=== PATIENT | female | born 1945 | race Caucasian/White ===

== ENCOUNTER 2017-08-27 04:37 | Inpatient (IN) ==
[2017-08-27] MEDS ORDERED: Naloxone 0.4 MG/ML INJ IVP PRN ×2 (08:19→20:30)
[2017-08-27] MEDS ORDERED: Dextrose Gel 15 GM/37.5 ML TUBE PO PRN ×4 (08:24→20:30)
[2017-08-27] MEDS ORDERED: D5% in Water 1,000 ML IVC PRN ×2 (08:24→20:30)
[2017-08-27] MEDS ORDERED: *HR* Dextrose 50 % in Water (Syg) 50 ML SYRINGE IVP PRN ×2 (08:24→20:30)
[2017-08-27] MEDS ORDERED: 0.9 % Sodium Chloride 1,000 ML IVC SCH (08:30)
[2017-08-27] MEDS ORDERED: Acetaminophen 325 MG TABLET PO PRN ×2 (08:31→20:30)
--- NOTE | 2017-08-27 08:31 | Internal Med History&Physical ---
Date of Encounter: 08/27/17 Time of Encounter: 08:29 Assessment and Plan (1) Obstruction of left ureteropelvic junction (UPJ) due to stone Current visit: Yes Status: Acute Pain control IVF Follow UA and culture eval, called and consulted (2) HTN (hypertension) Current visit: Yes Status: Chronic Continue home meds, monitor closely Qualifiers: Hypertension type: essential hypertension Qualified Code(s): I10 - Essential (primary) hypertension (3) Depression Current visit: Yes Status: Chronic continue home meds Qualifiers: Depression Type: unspecified Qualified Code(s): F32.9 - Major depressive disorder, single episode, unspecified (4) Diabetes mellitus Current visit: Yes Status: Chronic on glimepiride , metformin and insuoin Check A1C Suspect CKD, no renal function to compare with FS q4h till after surgery Sliding scale insulin q4 Levemir HS ADA diet after surgery Qualifiers: Diabetes mellitus type: type 2 Diabetes mellitus complication status: with unspecified complications Diabetes mellitus retirement insulin use: with retirement use Qualified Code(s): E11.8 - Type 2 diabetes mellitus with unspecified complications; Z79.4 - skilled nursing (current) use of insulin; Z79.4 - terminal superintendent ( current) use of insulin; Z79.4 - skilled nursing (current) use of insulin; Z79.4 - skilled nursing (current) use of insulin (5) Atrial fibrillation Current visit: Yes Status: Chronic HR controlled, metoprolol, hold xarelto till after surgery Qualifiers: Atrial fibrillation type: chronic Qualified Code(s): I48.2 - Chronic atrial fibrillation (6) HLD (hyperlipidemia) Current visit: Yes Status: Chronic continue home meds Qualifiers: Hyperlipidemia type: unspecified Qualified Code(s): E78.5 - Hyperlipidemia , unspecified (7) History of colon cancer Current visit: Yes Status: Chronic in remission per patient (8) Ureteral colic Current visit: Yes Status: Acute pain control, IVF, urology eval (9) Renal insufficiency Current visit: Yes Status: Acute unspecified if acute or chronic We will give IVF and monitor Chem Internal Medicine - H&P: HPI Chief complaint: Loin pain Admitted From: Hospital to Hospital Transfer Plans for Post Hospital Care: Home History of present illness: Ms. Lewis is a 72 year old female with PMH of DM, Afib, CAD, HTN, personal hx of colon CA (in remission) She is seen at the bedside in company of her daughter The patient presented to an outside facility for left loin pain, started as sudden, severe 10/10, radiating down the LLQ and into the abdomen, associated with nausea, no vomiting. She denies diarrhea, bloody bowel movement. No preceding trauma, no known aggravating or relieving factors. She has a hx of renal stones. At the outside facility, she received IV dilaudid -total of 2.5mg and zofran, work up revealed WBC 10.9, Hb 12.6, K and Na WNL, Cr 1.81. EKG was NSR, Plain abdominal Xray unremarkable, but abdomen CT scan showed 7mm left UPJ stone causing moderate Lt obstructive yropathy, Lt perinephric stranding with possible secondary fornicela tear She was transferred to [facility] for urologic intervention and is admitted to medicine services due to her multiple medical problems She does not have a hx of [place], she does not remeber when her last ECHO ws. She has no angina, on minimal exertion, she is minimally active at home, but denies orthopnea, leg swelling, dyspnea, or PND. She had hernia repair under [place] about 2-3 years ago without any side effects. She has never smoked. She has no neurologic symptoms She will be admitted to medicine for management and work up Dr. Duque of urology has been contacted She has no advanced directives, she is full code Past Med Surg Social Fam HX - Past Medical History Medical history: atrial fibrillation, cancer, diabetes, hypertension, kidney stones Psychiatric history: depression - Social History Smoking Status: Never smoker Alcohol use: none Drug use: none Occupational status: unemployed Current living situation: Home - Independent All Systems PM: A 10-system review of systems was performed and is negative for pertinent findings except as documented above in the HPI. - Constitutional Constitutional: as per HPI - EENT Eyes: as per HPI Ears: as per HPI Nose, mouth and throat: as per HPI - Cardiovascular Cardiovascular ROS IM: as per HPI - Respiratory Respiratory: as per HPI - Gastrointestinal Gastrointestinal: as per HPI - Genitourinary Genitourinary: as per HPI - Musculoskeletal Musculoskeletal ROS IM: as per HPI - Integumentary Integumentary IM: as per HPI - Neurological Neurological ROS: as per HPI - Hematologic/Lymphatic Hematologic/Lymphatic: as per HPI - Constitutional Vitals: Temp Pulse Resp BP Pulse Ox 98.0 F 85 15 119/69 92 08/27/17 07:52 08/27/17 07:52 08/27/17 07:52 08/27/17 07:52 08/27/17 07:52 General appearance: Present: A&O X 3, no acute distress, obese - Head Head exam: Present: atraumatic, normocephalic - Eye Eye exam: Present: PERRL, conjuntiva pink, sclera anicteric Pupils: Present: PERRL - Neck Neck exam general surgery: Present: supple, trachea midline. Absent: lymphadenopathy - Respiratory Respiratory exam: Present: CTAB. Absent: accessory muscle use, rales, rhonchi, wheezes - Cardiovascular Cardiovascular exam: Present: RRR, +S1, +S2. Absent: diastolic murmur, gallop, rubs, systolic murmur - GI/Abdominal GI/Abdominal exam: Present: normal bowel sounds, soft, no peritoneal signs. Absent: distended, tenderness Additional comments: scar+ - Extremities Exam Extremities exam: Present: warm, radial pulses palpable and symmetrical. Absent : calf tenderness, cyanotic, pedal edema - Back Exam Back exam: Present: CVA tenderness (L) - Neurological Exam Neurological exam: Present: alert, CN II-XII intact, oriented X3, no focal deficits. Absent: pronater drift, facial droop, speech deficit - Skin Skin exam: Present: dry, intact
[2017-08-27] MEDS ORDERED: Ondansetron 4 MG/2 ML VIAL IVP PRN ×2 (08:37→20:30)
[2017-08-27 09:00] LABS: Eosinophils % 0.2 %; Hematocrit 38.6 % (35.3-44.9); Hemoglobin 11.8 g/dL (11.5-15.4); Immature Granulocytes % 0.5 % (0-4); Lymphocytes % 9.7 %; Mean Corpuscular HGB Conc 30.6 g/dL (31.6-35.5); Mean Corpuscular Hemoglobin 25.2 pg (28.0-33.3); Mean Corpuscular Volume 82.5 fL (83.0-100.0); Mean Platelet Volume 9.4 fL (9.4-12.4); Monocytes % 7.9 %; Platelet Count 246 K/mcL (140-400); Red Blood Count 4.68 M/mcL (3.82-4.97); Red Cell Distribution Width 15.1 % (11.5-14.5); Segmented Neutrophils % 81.4 %
[2017-08-27] MEDS ORDERED: FLUoxetine HCl Oral Soln 20 MG/5 ML UDC PO SCH (09:00)
[2017-08-27 09:01] LABS: Basophils % 0.3 %; Lymphocytes # 1.3 K/mcL (0.6-4.6); Monocytes # 1.1 K/mcL (0.0-1.3); Neutrophils # 10.8 K/mcL (1.6-8.9)
[2017-08-27] MEDS: *HR* OxyCODONE Immed Rel 5 MG TABLET PO PRN ×2 (09:09→15:51)
[2017-08-27 09:10] LABS: INR 1.5; Prothrombin Time 16.7 Seconds (9.4-12.1)
[2017-08-27 09:18] LABS: Calcium 8.8 mg/dL (8.6-10.3); Potassium 4.9 mEq/L (3.5-5.1)
[2017-08-27 09:48] LABS: Hemoglobin A1C 7.1 %
[2017-08-27] MEDS: *HR* HYDROmorphone (PF) 1 MG/ML SYRINGE IVP PRN ×2 (11:32→17:41)
--- NOTE | 2017-08-27 11:39 | Urology - Consult Note ---
Date of Encounter: 08/27/17 Time of Encounter: 11:37 - Assessment and Plan (1) Ureteral colic Current Visit: Yes Status: Acute Assessment and plan: 72-year-old woman with a left proximal ureteral stone. I recommend proceeding with a cystoscopy and left ureteral stent placement. She was informed of the risks of the procedure including but not limited to bleeding, infection, injury to other structures, need for further procedures, stent irritation, ureteral perforation, need for nephrostomy tube, need for open repair, risks unforeseen, and the risk of anesthesia. She is willing to proceed. Urology CN:HPI Consult date: 08/27/17 Reason for consult Urology: Other (Left flank pain) Requesting physician: Jose Peters History of present illness: 72-year-old woman presents with a history of left flank pain. She has a known stone history. She was seen at an outside emergency room. The pain radiated to her left groin. It was sharp. It has been intermittent. The pain can be severe. A CT scan was performed which showed a 7 mm left proximal ureteral stone. She was transferred here for further care. She previously had a stone treated many years ago. Past Med Surg Social Fam HX - Past Medical History Medical history: atrial fibrillation, cancer, diabetes, hypertension, kidney stones Psychiatric history: depression - Social History Smoking Status: Never smoker Alcohol use: none Drug use: none Medications and Allergies Cyanocobalamin (B-12) [Vitamin B12] 1,000 mcg IM QMONTH 08/27/17 [History] FLUoxetine HCl [PROzac] 20 mg PO DAILY 08/27/17 [History] HYDROcodone/Acet 5/325 mg [[place] 5-325 mg] 1 tab PO TID 08/27/17 [History] Insulin Glargine,Hum.rec.anlog [Lantus Solostar] 20 unit SQ HS 08/27/17 [History ] Rivaroxaban [Xarelto] 20 mg PO DAILY 08/27/17 [History] glipiZIDE [Glucotrol] 5 mg PO TID 08/27/17 [History] metFORMIN [Glucophage] 500 mg PO TID 08/27/17 [History] 3 Allergy/AdvReac Type Severity Reaction Status Date / Time aspirin Allergy Nausea Verified 08/27/17 11:26 Review of Systems - Constitutional no chills, no fever(s) - EENT Nose, mouth and throat: no dizziness - Cardiovascular no chest pain - Respiratory no dyspnea - Gastrointestinal no nausea, no vomiting - Genitourinary Genitourinary: flank pain, no hematuria - Musculoskeletal no back pain - Integumentary no erythema, no rash - Neurological no weakness - Psychiatric no suicidal ideation - Hematologic/Lymphatic no easy bleeding - Allergic/Immunologic no wheezing Exam Initial Vital Signs Temp Pulse Resp BP Pulse Ox 97.8 F 87 16 131/74 95 08/27/17 06:45 08/27/17 06:45 08/27/17 06:45 08/27/17 06:45 08/27/17 06:45 - General physical appearance Present: well developed, well nourished, no distress - Eyes Absent: icteric - ENT Present: normal nares - Neck Present: trachea midline - Respiratory Present: normal respiratory effort - Cardiovascular Cardiovascular exam IM: RRR - Abdomen Abdomen: Present: soft Urology Results - Labs 08/27/17 08:51 08/27/17 08:51 Abnormal lab results WBC 13.2 K/mcL (4.3-11.1) H 08/27/17 08:51 MCV 82.5 fL (83.0-100.0) L 08/27/17 08:51 MCH 25.2 pg (28.0-33.3) L 08/27/17 08:51 MCHC 30.6 g/dL (31.6-35.5) L 08/27/17 08:51 RDW 15.1 % (11.5-14.5) H 08/27/17 08:51 Neutrophils # 10.8 K/mcL (1.6-8.9) H 08/27/17 08:51 PT 16.7 Seconds (9.4-12.1) H 08/27/17 08:51 BUN 28 mg/dL (8-23) H 08/27/17 08:51 Creatinine 1.62 mg/dL (0.60-1.20) H 08/27/17 08:51 Est GFR ( Amer) 38 (> 60) L 08/27/17 08:51 Est GFR (Non-Af Amer) 31 (> 60) L 08/27/17 08:51 Glucose 248 mg/dL (70-105) H 08/27/17 08:51 Hemoglobin A1c 7.1 % (-5.6) H 08/27/17 08:51 Diabetes panel 08/27/17 08/27/17 Range/Units 08:51 08:51 Sodium 137 (136-145) mEq/L Potassium 4.9 (3.5-5.1) mEq/L Chloride 106 (98-107) mEq/L Carbon Dioxide 27 (23-29) mEq/L BUN 28 H (8-23) mg/dL Creatinine 1.62 H (0.60-1.20) mg/dL Glucose 248 H (70-105) mg/dL Hemoglobin A1c 7.1 H ( - 5.6) % Calcium 8.8 (8.6-10.3) mg/dL Calcium panel 08/27/17 Range/Units 08:51 Calcium 8.8 (8.6-10.3) mg/dL Pituitary panel 08/27/17 Range/Units 08:51 Sodium 137 (136-145) mEq/L Potassium 4.9 (3.5-5.1) mEq/L Chloride 106 (98-107) mEq/L Carbon Dioxide 27 (23-29) mEq/L BUN 28 H (8-23) mg/dL Creatinine 1.62 H (0.60-1.20) mg/dL Glucose 248 H (70-105) mg/dL Calcium 8.8 (8.6-10.3) mg/dL Adrenal panel 08/27/17 Range/Units 08:51 Sodium 137 (136-145) mEq/L Potassium 4.9 (3.5-5.1) mEq/L Chloride 106 (98-107) mEq/L Carbon Dioxide 27 (23-29) mEq/L BUN 28 H (8-23) mg/dL Creatinine 1.62 H (0.60-1.20) mg/dL Glucose 248 H (70-105) mg/dL Calcium 8.8 (8.6-10.3) mg/dL All other labs normal. - Imaging CT scan - abdomen: report reviewed CT scan - pelvis: report reviewed Consult Discharge Plan - Plan Referrals: Tia Dejesus [Primary Care Provider] -
[2017-08-27] MEDS: Insulin LISPRO 300 UNITS/3 ML VIAL SQ SCH ×3 (12:24→23:03)
[2017-08-27 15:10] LABS: Bilirubin,Urine Negative (Negative); Blood,Urine Small (Negative); Clarity,Urine Cloudy (Clear); Color,Urine Yellow (Yellow); Glucose,Urine (UA) Normal (Normal); Ketones,Urine Negative (Negative); Leukocyte Esterase,Urine Small (Negative); Nitrite,Urine Positive (Negative); PH,Urine 5.5 pH Units (5.0-8.0); Protein,Urine Trace mg/dL (Neg-Trace); Specific Gravity,Urine 1.023 (1.010-1.025); Urobilinogen,Urine Normal (Normal)
[2017-08-27 15:12] LABS: Bacteria,Urine Many per hpf (None-Few); Hyaline Casts,Urine None Seen per lpf (None-Few); RBC,Urine 0-3 per hpf (0-3); Squamous Epithelial Cell,Urine Many per lpf (None-Few); WBC,Urine 15-30 per hpf (0-3)
[2017-08-27] MEDS ORDERED: cefTRIAXone 1,000 MG in Water for inj. (sterile) 10 ML IVP SCH (16:00)
--- NOTE | 2017-08-27 18:32 | Anesthesia Evaluation PreOp ---
Date of Encounter: 08/27/17 Time of Encounter: 18:30 - Past History Planned Operation: Cystoscopy, Stent Placement Cardiac History: HTN, Hyperlipidemia, Arrhythmia (A-Fib) Pulmonary History: Denies Any Significant HX ASSOCIATE BROKER History: Denies Any Significant HX Other Medical History: Renal (renal insufficiency), Diabetes Type II, GERD, Other (H/O colon CA, depression) Anesthesia History: No Prior Anesthetic Complications, Past Anesthesia Alcohol Use: none Drug use: none Medications and Allergies Cyanocobalamin (B-12) [Vitamin B12] 1,000 mcg IM QMONTH 08/27/17 [History] FLUoxetine HCl [PROzac] 20 mg PO DAILY 08/27/17 [History] Gabapentin [Neurontin] 600 mg PO TID 08/27/17 [History] HYDROcodone/Acet 5/325 mg [[place] 5-325 mg] 1 tab PO TID PRN 08/27/17 [History] Insulin Glargine,Hum.rec.anlog [Lantus Solostar] 20 unit SQ HS 08/27/17 [History ] Oxybutynin [Ditropan] 5 mg PO BID 08/27/17 [History] Ranitidine HCl [Acid Therapy Director] 150 mg PO BID PRN 08/27/17 [History] Rivaroxaban [Xarelto] 20 mg PO DAILY 08/27/17 [History] Simvastatin [Zocor] 40 mg PO HS 08/27/17 [History] glipiZIDE [Glucotrol] 5 mg PO TID 08/27/17 [History] metFORMIN [Glucophage] 500 mg PO TID 08/27/17 [History] 3 Allergy/AdvReac Type Severity Reaction Status Date / Time aspirin Allergy Nausea Verified 08/27/17 11:26 - Meds/Allergy Pre-op Review Medications Reviewed: Yes Allergies Reviewed: Yes Beta Blockers on Current Med List: Yes If Beta Blockers taken, Date/Time (Last Dose taken): 08/27/2017 at 0909 Anesthesia Results - Labs 08/27/17 08:51 08/27/17 08:51 - Imaging EKG: report reviewed (08/27/2017 A-Fib, low QRS voltage in precordial leads) Anesthesia Exam O2 Sat Height 1.68 m Weight 99.6 kg O2 Sat by Pulse Oximetry 96 O2 Sat by Pulse Oximetry 95 O2 Sat by Pulse Oximetry 92 O2 Sat by Pulse Oximetry 92 O2 Sat by Pulse Oximetry 95 Vital Signs Temp Pulse Resp BP Pulse Ox 97.8 F 87 16 131/74 95 08/27/17 06:45 08/27/17 06:45 08/27/17 06:45 08/27/17 06:45 08/27/17 06:45 Blood Glucose* 114 Height: 5'6''/1.68 m Weight: 219 lbs/99.6 kg NPO (# of Hours): 8 Pain Scale: 7 Pain Scale Used: Numeric (1 - 10) - HEENT Pupil (Motor): EOMI Mallampati: II Teeth: Edentulous Oral Opening: Greater than 3 - ASSOCIATE BROKER LOC: Oriented ASSOCIATE BROKER Motor: Normal RUE, Normal LUE, Normal RLE, Normal LLE, Normal Face ASSOCIATE BROKER Sensory: Normal: RUE, LUE, Face, Deficit: RLE, LLE - Cardiac Rhythm: Irregular Murmur: None - Pulmonary Breath Sounds: bilateral Clear Respiratory Effort: Symmetrical Anesthesia Assess/Plan ASA Score: 3 Modified [place] Scale for Level of Consciousness: Cooperative, oriented, and tranquil Anesthetic Plan: General Monitoring Plan: Standard Monitors Recovery Plan: PACU
[2017-08-27] MEDS ORDERED: Lidocaine -MPF 2% 2 ML VIAL ONE (19:05)
[2017-08-27] MEDS ORDERED: *HR* Propofol 200 MG/20 ML VIAL IVP ONE (19:05)
[2017-08-27] MEDS ORDERED: *HR* FentaNYL (PF) 100 MCG/2 ML VIAL ONE (19:05)
[2017-08-27] MEDS ORDERED: *HR* Succinylcholine 200 MG/10 ML VIAL IVP ONE (19:18)
--- NOTE | 2017-08-27 19:44 | Operative Note ---
Date of procedure: 08/27/17 Pre-op diagnosis: Left ureteral stone Post-op diagnosis: same Procedure: Cystoscopy, Left ureteral stent placement Implants: 6 [place] by 24 cm double-J stent. Complications: None Anesthesia: HOWARD Surgeon: Terry Duque Was there an preschool teacher's assistant present: No Estimated blood loss (cc): 0 Specimen: none Condition: stable Disposition: PACU Procedure in Detail: Indications: Arti is a 72-year-old woman who has a history of nephrolithiasis. She had a CT which showed a left proximal ureteral stone. She still has an 8 mm stone in the left proximal ureter. She elected to undergo a cystoscopy and left ureteral stent placement. She was aware of the risks of the procedure including but not limited to bleeding, infection, injury to other structures, need for further procedures, stent irritation, need for nephrostomy tube, need for open repair, risks otherwise unforeseen, and the risk of anesthesia. She is willing to proceed. Procedure in Detail: After informed consent was obtained the patient was brought back to the operating room and placed in supine position. A time out was performed. General anesthesia was administered and an endotracheal tube was placed. She was then placed in the lithotomy position. She was prepped and draped in the usual sterile fashion. Cystoscopy was performed. The anterior urethra was normal. There was no evidence of bladder tumors. The ureteral orifices were in the normal orthotopic position. There was no duplication of the ureteral orifices. The Zip wire was placed in the left ureteral orifice. The wire was passed a stone. Purulent fluid emanate out of the left ureteral orifice. A 6 [place] by 24cm JJ stent was then placed. The dangle strings were removed. The patient was then awakened from general anesthesia and brought to recovery room in good condition. All sponge, needle, and instrument counts were correct.
--- NOTE | 2017-08-27 19:55 | Anesthesia Evaluation Post Op ---
Date of Encounter: 08/27/17 Time of Encounter: 19:54 - Vital Signs Vital Signs: Vital Signs/O2 Sat, Most Current Temp Pulse Resp BP Pulse Ox 97.6 F 77 16 112/57 96 08/27/17 19:40 08/27/17 19:50 08/27/17 19:50 08/27/17 19:50 08/27/17 19:50 - Lungs Lungs: Clear Ascult./Percussion - Airway Airway: Non-obstructed - Cardiovascular Irregular Rate, Baseline Rhythm - Mental Status Mental Status: Alert & Oriented, Answers Appropriately - Pain Pain Scale: 0 Pain Scale used: Numeric (1 - 10) - Nausea Vomiting Nausea Vomiting: Not Present - Hydration Hydration: NPO, Has not voided - Discharge PostOp Status: Transfer Patient to floor
[2017-08-27] MEDS ORDERED: *HR* HYDROmorphone (PF) 1 MG/ML SYRINGE IVP PRN (20:30)
[2017-08-27] MEDS ORDERED: Insulin DETEMIR 100 UNIT/ML X5UNITS SQ SCH (21:00)
[2017-08-27] MEDS: 0.9 % Sodium Chloride 1,000 ML IVC SCH (22:53)
[2017-08-27] MEDS: Insulin DETEMIR 100 UNIT/ML X5UNITS SQ SCH (22:53)
[2017-08-28 05:48] LABS: Basophils % 0.4 %; Eosinophils # 0.2 K/mcL (0.0-0.6); Eosinophils % 1.6 %; Hematocrit 35.9 % (35.3-44.9); Hemoglobin 10.7 g/dL (11.5-15.4); Immature Granulocytes % 0.4 % (0-4); Lymphocytes # 1.7 K/mcL (0.6-4.6); Lymphocytes % 16.4 %; Mean Corpuscular HGB Conc 29.8 g/dL (31.6-35.5); Mean Corpuscular Hemoglobin 25.3 pg (28.0-33.3); Mean Corpuscular Volume 84.9 fL (83.0-100.0); Monocytes # 0.9 K/mcL (0.0-1.3); Neutrophils # 7.5 K/mcL (1.6-8.9); Platelet Count 240 K/mcL (140-400); Red Blood Count 4.23 M/mcL (3.82-4.97); Red Cell Distribution Width 15.3 % (11.5-14.5); Segmented Neutrophils % 72.2 %
[2017-08-28] MEDS: 0.9 % Sodium Chloride 1,000 ML IVC SCH ×2 (06:11→18:12)
[2017-08-28] MEDS: *HR* OxyCODONE Immed Rel 5 MG TABLET PO PRN (06:11)
[2017-08-28 06:12] LABS: Calcium 8.6 mg/dL (8.6-10.3); Potassium 4.8 mEq/L (3.5-5.1)
[2017-08-28] MEDS: Insulin LISPRO 300 UNITS/3 ML VIAL SQ SCH ×5 (06:16→20:58)
[2017-08-28] MEDS: FLUoxetine 20 MG CAPSULE PO SCH (08:59)
--- NOTE | 2017-08-28 09:30 | Urology Progress Note ---
Date of Encounter: 08/28/17 Time of Encounter: 09:29 - Assessment and Plan (1) Ureteral colic Current Visit: Yes Status: Acute Assessment and plan: 72-year-old woman status post left ureteral stent placement. She is doing well. We will arrange for ureteroscopy at a later date. We briefly discussed shockwave lithotripsy but given the potential for decreased success rates and her need for anticoagulation she declined this as an option. Disposition per primary team. Progress Note Narrative: Postop day #1 status post cystoscopy and left ureteral stent placement. She is doing well today. Her pain is well-controlled. Objective Initial Vital Signs Temp Pulse Resp BP Pulse Ox 97.8 F 87 16 131/74 95 08/27/17 06:45 08/27/17 06:45 08/27/17 06:45 08/27/17 06:45 08/27/17 06:45 - General physical appearance Present: well developed, well nourished, no distress - Respiratory Present: normal respiratory effort - Abdomen Present: soft - Labs 08/28/17 05:08 08/28/17 05:08 Diabetes panel 08/27/17 08/28/17 Range/Units 08:51 05:08 Sodium 138 (136-145) mEq/L Potassium 4.8 (3.5-5.1) mEq/L Chloride 106 (98-107) mEq/L Carbon Dioxide 28 (23-29) mEq/L BUN 29 H (8-23) mg/dL Creatinine 1.82 H (0.60-1.20) mg/dL Glucose 249 H (70-105) mg/dL Hemoglobin A1c 7.1 H ( - 5.6) % Calcium 8.6 (8.6-10.3) mg/dL Calcium panel 08/28/17 Range/Units 05:08 Calcium 8.6 (8.6-10.3) mg/dL Pituitary panel 08/28/17 Range/Units 05:08 Sodium 138 (136-145) mEq/L Potassium 4.8 (3.5-5.1) mEq/L Chloride 106 (98-107) mEq/L Carbon Dioxide 28 (23-29) mEq/L BUN 29 H (8-23) mg/dL Creatinine 1.82 H (0.60-1.20) mg/dL Glucose 249 H (70-105) mg/dL Calcium 8.6 (8.6-10.3) mg/dL Adrenal panel 08/28/17 Range/Units 05:08 Sodium 138 (136-145) mEq/L Potassium 4.8 (3.5-5.1) mEq/L Chloride 106 (98-107) mEq/L Carbon Dioxide 28 (23-29) mEq/L BUN 29 H (8-23) mg/dL Creatinine 1.82 H (0.60-1.20) mg/dL Glucose 249 H (70-105) mg/dL Calcium 8.6 (8.6-10.3) mg/dL - VTE Documentation of Mechanical Device: Intermittent pneumatic compression device Consult Discharge Plan - Plan Referrals: Tia Dejesus [Primary Care Provider] -
--- NOTE | 2017-08-28 09:44 | Internal Med Progress Note ---
Date of Encounter: 08/28/17 Time of Encounter: 09:15 - Assessment and plan (1) Obstruction of left ureteropelvic junction (UPJ) due to stone Current Visit: Yes Status: Acute Assessment and plan: Postop day 2 cystoscopy with left UPJ stent placement. Now having significant amount of gross hematuria, likely due to procedure and residual effect of Xarelto which was held 2 nights ago. Anticoagulation remains on hold, will continue to monitor. (2) Atrial fibrillation Current Visit: Yes Status: Chronic Assessment and plan: Xarelto has been on hold. Rate is controlled. Restart Xarelto when bleeding stops. Qualifiers: Atrial fibrillation type: chronic Qualified Code(s): I48.2 - Chronic atrial fibrillation (3) Depression Current Visit: Yes Status: Chronic Qualifiers: Depression Type: unspecified Qualified Code(s): F32.9 - Major depressive disorder, single episode, unspecified (4) Diabetes mellitus Current Visit: Yes Status: Chronic Assessment and plan: Basal bolus insulin, monitor. Adjust as necessary Qualifiers: Diabetes mellitus type: type 2 Diabetes mellitus complication status: with unspecified complications Diabetes mellitus custodial insulin use: with termite exterminator helper use Qualified Code(s): E11.8 - Type 2 diabetes mellitus with unspecified complications; Z79.4 - intermediate manager (current) use of insulin; Z79.4 - intermediate manager ( current) use of insulin; Z79.4 - intermediate manager (current) use of insulin; Z79.4 - [facility] (current) use of insulin (5) HLD (hyperlipidemia) Current Visit: Yes Status: Chronic Qualifiers: Hyperlipidemia type: unspecified Qualified Code(s): E78.5 - Hyperlipidemia , unspecified (6) HTN (hypertension) Current Visit: Yes Status: Chronic Assessment and plan: Early under good control. Monitor. Qualifiers: Hypertension type: essential hypertension Qualified Code(s): I10 - Essential (primary) hypertension - Time Spent With Patient 25 - 35 minutes - Subjective Interval history: Chief complaint: Loin pain Admitted From: Hospital to Hospital Transfer Plans for Post Hospital Care: Home History of present illness: Ms. Lewis is a 72 year old female with PMH of DM, Afib, CAD, HTN, personal hx of colon CA (in remission) She is seen at the bedside in company of her daughter The patient presented to an outside facility for left loin pain, started as sudden, severe 10/, radiating down the LLQ and into the abdomen, associated with nausea, no vomiting. She denies diarrhea, bloody bowel movement. No preceding trauma, no known aggravating or relieving factors. She has a hx of renal stones. At the outside facility, she received IV dilaudid -total of 2.5mg and zofran, work up revealed WBC 10.9, Hb 12.6, K and Na WNL, Cr 1.81. EKG was NSR, Plain abdominal Xray unremarkable, but abdomen CT scan showed 7mm left UPJ stone causing moderate Lt obstructive yropathy, Lt perinephric stranding with possible secondary fornicela tear She was transferred to [facility] for urologic intervention and is admitted to medicine services due to her multiple medical problems She does not have a hx of [place], she does not remeber when her last ECHO ws. She has no angina, on minimal exertion, she is minimally active at home, but denies orthopnea, leg swelling, dyspnea, or PND. She had hernia repair under [place] about 2-3 years ago without any side effects. She has never smoked. She has no neurologic symptoms She will be admitted to medicine for management and work up Dr. Duque of urology has been contacted She has no advanced directives, she is full code 08/28: Patient underwent cystoscopy with left UPJ stent last night. She states she feels well today with no pain. No fevers or chills. No nausea, vomiting, diarrhea. No chest pain, no shortness of breath. She does states she is having gross hematuria. Also of note her creatinine has increased from 1.62- 1.82 this morning. She states she is able to tolerate orals, including liquids. - Constitutional Vitals: Temp Pulse Resp BP Pulse Ox 98.6 F 61 16 121/63 95 08/28/17 06:58 08/28/17 06:58 08/28/17 06:58 08/28/17 06:58 08/28/17 06:58 General appearance: Present: A&O X 3, no acute distress, obese - Head Head exam: Present: atraumatic, normocephalic - Eye Eye exam: Present: conjuntiva pink, sclera anicteric - Neck Neck exam general surgery: Present: supple, trachea midline. Absent: lymphadenopathy - Respiratory Respiratory exam: Present: CTAB. Absent: accessory muscle use, rales, rhonchi, wheezes - Cardiovascular Cardiovascular exam: Present: RRR, +S1, +S2. Absent: diastolic murmur, gallop, rubs, systolic murmur - GI/Abdominal GI/Abdominal exam: Present: normal bowel sounds, soft, no peritoneal signs. Absent: distended, tenderness - Extremities Exam Extremities exam: Present: warm, radial pulses palpable and symmetrical. Absent : calf tenderness, cyanotic, pedal edema - Neurological Exam Neurological exam: Present: CN II-XII intact, oriented X3, no focal deficits. Absent: pronater drift, facial droop, speech deficit - Skin Skin exam: Present: dry, intact Internal Medicine: Result - Labs CBC & Chem 7: 08/28/17 05:08 08/28/17 05:08 Labs: Short CBC 08/28/17 Range/Units 05:08 WBC 10.4 (4.3-11.1) K/mcL Hgb 10.7 L (11.5-15.4) g/dL Hct 35.9 (35.3-44.9) % Plt Count 240 (140-400) K/mcL Neutrophils # 7.5 (1.6-8.9) K/mcL BMP 08/28/17 05:08 Sodium 138 Potassium 4.8 Chloride 106 Carbon Dioxide 28 BUN 29 H Creatinine 1.82 H Glucose 249 H Calcium 8.6 Urine 08/27/17 Range/Units 15:00 Urine Color Yellow (Yellow) Urine Clarity Cloudy A (Clear) Urine pH 5.5 (5.0-8.0) pH Units Ur Specific [place] 1.023 (1.010-1.025) Urine Protein Trace (Neg-Trace) mg/dL Urine Glucose (UA) Normal (Normal) mg/dL - ABG Interpretation ABG results: PT/INR, D-dimer PT 16.7 Seconds (9.4-12.1) H 08/27/17 08:51 - Impressions Impressions KUB X-Ray 08/27/17 09:37 IMPRESSION: 1. 2 mm calculus projects over the left kidney. 2. 9 mm calculus may be within the left ureter or left renal pelvis. D/ / Claude Gao MD / Claude Gao MD Interpreting Provider: Claude Gao MD Fluoroscopy 08/27/17 19:20 IMPRESSION: Intraprocedural fluoroscopic spot images as above. See separate procedure report for more information. D/ / Fabiola Mix Cha, MD / Fabiola Mix Cha, MD Interpreting Provider: Fabiola Mix Cha, MD - VTE Documentation of Mechanical Device: Intermittent pneumatic compression device Consult Discharge Plan - Plan Referrals: Tia Dejesus [Primary Care Provider] -
[2017-08-28] MEDS ORDERED: cefTRIAXone 1,000 MG in Water for inj. (sterile) 10 ML IVP SCH (16:00)
[2017-08-28] MEDS ORDERED: *HR* Rivaroxaban 10 MG TABLET PO SCH ×2 (17:00)
[2017-08-28] MEDS: Insulin DETEMIR 100 UNIT/ML X5UNITS SQ SCH (20:57)
[2017-08-29] MEDS: Insulin LISPRO 300 UNITS/3 ML VIAL SQ SCH ×4 (00:31→12:23)
[2017-08-29] MEDS: 0.9 % Sodium Chloride 1,000 ML IVC SCH (02:31)
[2017-08-29] MEDS: FLUoxetine 20 MG CAPSULE PO SCH (08:41)
[2017-08-29 09:12] LABS: Basophils % 0.4 %; Eosinophils # 0.3 K/mcL (0.0-0.6); Eosinophils % 3.4 %; Hematocrit 37.5 % (35.3-44.9); Hemoglobin 11.1 g/dL (11.5-15.4); Immature Granulocytes % 0.2 % (0-4); Lymphocytes # 2.4 K/mcL (0.6-4.6); Mean Corpuscular HGB Conc 29.6 g/dL (31.6-35.5); Mean Corpuscular Hemoglobin 25.3 pg (28.0-33.3); Mean Corpuscular Volume 85.4 fL (83.0-100.0); Mean Platelet Volume 9.6 fL (9.4-12.4); Monocytes # 0.8 K/mcL (0.0-1.3); Monocytes % 8.2 %; Neutrophils # 6.4 K/mcL (1.6-8.9); Platelet Count 209 K/mcL (140-400); Red Blood Count 4.39 M/mcL (3.82-4.97); Red Cell Distribution Width 15.1 % (11.5-14.5); Segmented Neutrophils % 63.8 %
[2017-08-29 09:22] LABS: Calcium 8.6 mg/dL (8.6-10.3); Potassium 4.6 mEq/L (3.5-5.1)
--- NOTE | 2017-08-29 10:34 | Urology Progress Note ---
Date of Encounter: 08/29/17 Time of Encounter: 10:33 - Assessment and Plan (1) Ureteral colic Current Visit: Yes Status: Acute Assessment and plan: 72-year-old woman with a left ureteral stone status post left stent placement. Discharge per primary team. I will arrange for follow-up as an outpatient for left ureteroscopy, laser lithotripsy, and stent exchange. Urology will sign off today. Please call with any questions. Progress Note Narrative: Postop day #2 status post left ureter stent placement. She is doing well. She is voiding well. Objective Initial Vital Signs Temp Pulse Resp BP Pulse Ox 97.8 F 87 16 131/74 95 08/27/17 06:45 08/27/17 06:45 08/27/17 06:45 08/27/17 06:45 08/27/17 06:45 - General physical appearance Present: well developed, well nourished, no distress - Respiratory Present: normal respiratory effort - Abdomen Present: soft - Labs 08/29/17 08:51 08/29/17 08:51 Diabetes panel 08/29/17 Range/Units 08:51 Sodium 137 (136-145) mEq/L Potassium 4.6 (3.5-5.1) mEq/L Chloride 109 H (98-107) mEq/L Carbon Dioxide 22 L (23-29) mEq/L BUN 28 H (8-23) mg/dL Creatinine 1.51 H (0.60-1.20) mg/dL Glucose 129 H (70-105) mg/dL Calcium 8.6 (8.6-10.3) mg/dL Calcium panel 08/29/17 Range/Units 08:51 Calcium 8.6 (8.6-10.3) mg/dL Pituitary panel 08/29/17 Range/Units 08:51 Sodium 137 (136-145) mEq/L Potassium 4.6 (3.5-5.1) mEq/L Chloride 109 H (98-107) mEq/L Carbon Dioxide 22 L (23-29) mEq/L BUN 28 H (8-23) mg/dL Creatinine 1.51 H (0.60-1.20) mg/dL Glucose 129 H (70-105) mg/dL Calcium 8.6 (8.6-10.3) mg/dL Adrenal panel 01/28/18 Range/Units 08:51 Sodium 137 (136-145) mEq/L Potassium 4.6 (3.5-5.1) mEq/L Chloride 109 H (98-107) mEq/L Carbon Dioxide 22 L (23-29) mEq/L BUN 28 H (8-23) mg/dL Creatinine 1.51 H (0.60-1.20) mg/dL Glucose 129 H (70-105) mg/dL Calcium 8.6 (8.6-10.3) mg/dL - VTE Documentation of Mechanical Device: Intermittent pneumatic compression device Consult Discharge Plan - Plan Referrals: Tia Dejesus [Primary Care Provider] -
[2017-08-29] MEDS: *HR* OxyCODONE Immed Rel 5 MG TABLET PO PRN (10:47)
--- NOTE | 2017-08-29 10:50 | Discharge Summary ---
Date of Encounter: 08/29/17 Time of Encounter: 08:30 - Discharge Diagnosis (1) Obstruction of left ureteropelvic junction (UPJ) due to stone Priority: Primary Status: Acute (2) Atrial fibrillation Priority: Secondary Status: Chronic Qualifiers: Atrial fibrillation type: chronic Qualified Code(s): I48.2 - Chronic atrial fibrillation (3) Depression Priority: Secondary Status: Chronic Qualifiers: Depression Type: unspecified Qualified Code(s): F32.9 - Major depressive disorder, single episode, unspecified (4) Diabetes mellitus Priority: Secondary Status: Chronic Qualifiers: Diabetes mellitus type: type 2 Diabetes mellitus complication status: with unspecified complications Diabetes mellitus apparel rental clerk insulin use: with penitentiary use Qualified Code(s): E11.8 - Type 2 diabetes mellitus with unspecified complications; Z79.4 - [facility] (current) use of insulin; Z79.4 - system administrator ( current) use of insulin; Z79.4 - [facility] (current) use of insulin; Z79.4 - system administrator (current) use of insulin (5) HLD (hyperlipidemia) Priority: Secondary Status: Chronic Qualifiers: Hyperlipidemia type: unspecified Qualified Code(s): E78.5 - Hyperlipidemia , unspecified (6) HTN (hypertension) Priority: Secondary Status: Chronic Qualifiers: Hypertension type: essential hypertension Qualified Code(s): I10 - Essential (primary) hypertension - Discharge Medications Home Medications: Cyanocobalamin (B-12) [Vitamin B12] 1,000 mcg IM QMONTH 08/27/17 [History] FLUoxetine HCl [Prozac] 20 mg PO DAILY 08/27/17 [History] Gabapentin [Neurontin] 600 mg PO TID 08/27/17 [History] HYDROcodone/Acet 5/325 mg [[place] 5-325 mg] 1 tab PO TID PRN 08/27/17 [History] Insulin Glargine,Hum.rec.anlog [Lantus Solostar] 20 unit SQ HS 08/27/17 [History ] Oxybutynin [Ditropan] 5 mg PO BID 08/27/17 [History] Ranitidine HCl [Acid Renewals Specialist] 150 mg PO BID PRN 08/27/17 [History] Rivaroxaban [Xarelto] 20 mg PO DAILY 08/27/17 [History] Simvastatin [Zocor] 40 mg PO HS 08/27/17 [History] glipiZIDE [Glucotrol] 5 mg PO TID 08/27/17 [History] Metoprolol [Lopressor] 25 mg PO BID tablet 08/29/17 [Rx] Allergies/Adverse Reactions: 3 Allergy/AdvReac Type Severity Reaction Status Date / Time aspirin Allergy Nausea Verified 08/27/17 11:26 Date of admission: 08/27/17 13:04 Primary care physician: Tia Dejesus Consults: 08/27/17 08:43 Consult to Urology [CONS] Routine Consulting Provider: Urology Luanne Reason for Consult: Obstrutive uropathy, stone Call Completed: Yes 08/29/17 08:24 Consult to Physical Therapy [CONS] Routine Comment: Evaluate, develop and implement POC Reason for Consult: Eval prior to dc please, prob dc later today if doing well Discharging clinician: Oren Galdamez Anticipated date of discharge: 08/29/17 - Patient Status Disposition: Home, Self-Care Condition: Good Functional capacity at discharge: independent ambulation Overall status at discharge: patient is back to baseline - Discharge Instructions Instructions: Kidney Stones (GEN) Follow Up With: Tia Dejesus [Primary Care Provider] - Additional Instructions: Hold metformin until repeat BMP done and okay to resume by her primary care doctor Hold Xarelto until PerSeptember 01, 2017. Continue to hold if any further blood in urine noted. Please see her primary care provider within the next 3-4 days - Diet and Activity Activity: increase activity as tolerated Interval History: Ms. Lewis is a 72 year old female with PMH of DM, Afib, CAD, HTN, personal hx of colon CA (in remission) She is seen at the bedside in company of her daughter The patient presented to an outside facility for left loin pain, started as sudden, severe 10/10, radiating down the LLQ and into the abdomen, associated with nausea, no vomiting. She denies diarrhea, bloody bowel movement. No preceding trauma, no known aggravating or relieving factors. She has a hx of renal stones. At the outside facility, she received IV dilaudid -total of 2.5mg and zofran, work up revealed WBC 10.9, Hb 12.6, K and Na WNL, Cr 1.81. EKG was NSR, Plain abdominal Xray unremarkable, but abdomen CT scan showed 7mm left UPJ stone causing moderate Lt obstructive yropathy, Lt perinephric stranding with possible secondary fornicela tear She was transferred to [facility] for urologic intervention and is admitted to medicine services due to her multiple medical problems She does not have a hx of [place], she does not remeber when her last ECHO ws. She has no angina, on minimal exertion, she is minimally active at home, but denies orthopnea, leg swelling, dyspnea, or PND. She had hernia repair under [place] about 2-3 years ago without any side effects. She has never smoked. She has no neurologic symptoms She will be admitted to medicine for management and work up Dr. Duque of urology has been contacted She has no advanced directives, she is full code 08/28: Patient underwent cystoscopy with left UPJ stent last night. She states she feels well today with no pain. No fevers or chills. No nausea, vomiting, diarrhea. No chest pain, no shortness of breath. She does states she is having gross hematuria. Also of note her creatinine has increased from 1.62- 1.82 this morning. She states she is able to tolerate orals, including liquids. 08/29: Patient did well during her hospital stay. Her hematuria resolved. Her creatinine also improved her level of 1.5 on day of discharge. She was eating well. She was seen by physical therapy prior to discharge. She was instructed to continue to hold metformin until a follow-up BMP became be ordered in 2-3 days and follow up with primary care provider. She also was told to hold the Route toe for at least 2 more days and longer if she notices any further blood in her urine. Patient otherwise was doing well and deemed stable for discharge. Urology evaluated this patient on day of discharge and arrange for outpatient follow-up. Disposition discharge stable. 31 minutes spent on discharge and [place] care. Hospital course: Ms. Lewis is a 72 year old female - Time Spent with Patient Total time spent providing and/or coordinating discharge services: Greater than 30 minutes (31 minutes) - Constitutional Vitals: Temp Pulse Resp BP Pulse Ox 98.4 F 87 16 98/54 96 08/29/17 06:33 08/29/17 06:33 08/29/17 06:33 08/29/17 06:33 08/29/17 06:33 General appearance: Present: A&O X 3, no acute distress, obese - Head Head exam: Present: atraumatic, normocephalic - Eye Eye exam: Present: PERRL, conjuntiva pink, sclera anicteric Pupils: Present: PERRL - Neck Neck exam general surgery: Present: supple, trachea midline. Absent: lymphadenopathy - Respiratory Respiratory exam: Present: CTAB. Absent: accessory muscle use, rales, rhonchi, wheezes - Cardiovascular Cardiovascular exam: Present: RRR, +S1, +S2. Absent: diastolic murmur, gallop, rubs, systolic murmur - GI/Abdominal GI/Abdominal exam: Present: normal bowel sounds, soft, no peritoneal signs. Absent: distended, tenderness - Extremities Exam Extremities exam: Present: warm, radial pulses palpable and symmetrical. Absent : calf tenderness, cyanotic, pedal edema - Neurological Exam Neurological exam: Present: CN II-XII intact, oriented X3, no focal deficits. Absent: pronater drift, facial droop, speech deficit - Skin Skin exam: Present: dry, intact - VTE Documentation of Mechanical Device: Intermittent pneumatic compression device
[2017-08-29 11:35] VITALS: BP 120/69
--- NOTE | 2017-08-31 15:32 | Electrocardiograph Report ---
[address] [place], [place] [address] Test Date: 2017-08-27 Pat Name: Arti Saint Elmo Department: [facility] Room: [facility] Gender: F Acid Strength Inspector: : 1945 Requested By: Julianna March Order Number: [id number] Reading MD: Sonny Foy DO Measurements Intervals [place] Rate: 62 P: IN: 0 QRS: 26 QRSD: 88 T: 44 QT: 406 QTc: 412 Interpretive Statements ATRIAL FIBRILLATION LOW QRS VOLTAGE IN PRECORDIAL LEADS Electronically Signed On 08-31-2017 15:30:26 EST by Sonny Foy DO
== END 2017-08-29 16:00 | disposition home or self-care (01) | DRG 694 ==
LOC: 3NENU
PROVIDERS: ADMIT Internal Medicine Hematology & Oncology; ATTEND Internal Medicine Hematology & Oncology

== ENCOUNTER 2021-07-31 08:59 | Inpatient (IN) ==
[2021-07-31] MEDS ORDERED: Famotidine 20 MG/2 ML VIAL IVP ONE (09:59)
[2021-07-31] MEDS ORDERED: cefOXitin 2,000 MG in Water for inj. (sterile) 10 ML IVP ONE (10:27)
[2021-07-31] MEDS ORDERED: *HR* Rocuronium Bromide 50 MG/5 ML VIAL ONE ×2 (10:29→12:47)
[2021-07-31] MEDS ORDERED: Lidocaine -MPF 2% 5 ML VIAL ONE (10:29)
[2021-07-31] MEDS ORDERED: *HR* FentaNYL (PF) 100 MCG/2 ML VIAL ONE (10:29)
[2021-07-31] MEDS ORDERED: Ondansetron 4 MG/2 ML VIAL ONE (10:29)
[2021-07-31] MEDS ORDERED: Lidocaine HCL 4 ML Topical Solution (Laryng-O-Jet Kit Sterile Pak) TP ONE (10:29)
[2021-07-31] MEDS ORDERED: *HR* Propofol 200 MG/20 ML VIAL IVP ONE (10:29)
[2021-07-31] MEDS ORDERED: Ringers Solution, Lactated 1,000 ML IVC SCH (10:30)
[2021-07-31] MEDS ORDERED: *HR* Vasopressin 20 UNIT/ML VIAL ONE (11:24)
[2021-07-31] MEDS ORDERED: *HR* HYDROMORPHONE 2 MG/ML VIAL ONE (12:18)
[2021-07-31] MEDS ORDERED: *HR* HYDROmorphone PF 0.5 MG/0.5 ML SYRINGE IVP PRN (13:32)
[2021-07-31] MEDS ORDERED: *HR* Metoprolol 5 MG/5 ML VIAL IVP ONE (14:46)
[2021-07-31] MEDS ORDERED: Sugammadex Sodium 200 MG/2 ML VIAL IV ONE ×2 (15:15→15:33)
[2021-07-31] MEDS ORDERED: *HR* Metoprolol 5 MG/5 ML VIAL IVP PRN (17:46)
[2021-07-31] MEDS ORDERED: D5% in Water 1,000 ML IVC PRN (17:46)
[2021-07-31] MEDS ORDERED: Naloxone 0.4 MG/ML INJ IVP PRN (17:46)
[2021-07-31] MEDS ORDERED: Ondansetron 4 MG/2 ML VIAL IVP PRN (17:46)
[2021-07-31] MEDS ORDERED: *HR* Dextrose 50 % in Water (Syg) 50 ML SYRINGE IVP PRN (17:46)
[2021-07-31] MEDS ORDERED: Dextrose Gel 15 GM/37.5 ML TUBE PO PRN ×2 (17:46)
[2021-07-31] MEDS: Insulin LISPRO 300 UNITS/3 ML VIAL SUBQ SCH ×2 (18:28→23:57)
[2021-07-31] MEDS: 0.9 % Sodium Chloride 1,000 ML IVC SCH (18:41)
[2021-07-31] MEDS: Piperacillin/Tazobactam 3.375 GM in 0.9 % Sodium Chloride Mini Bag 100 ML IVPB SCH (18:41)
[2021-07-31] MEDS: *HR* Metoprolol 5 MG/5 ML VIAL IVP SCH ×2 (18:42→23:57)
[2021-07-31] MEDS: Acetaminophen IV 1,000 MG/100 ML BAG IVPB SCH (21:21)
[2021-08-01] MEDS: Acetaminophen IV 1,000 MG/100 ML BAG IVPB SCH ×4 (02:27→16:58)
[2021-08-01 03:12] LABS: Magnesium 1.8 mg/dL (1.6-2.6); Phosphorous 4.4 mg/dL (2.7-4.5); Potassium 4.7 mEq/L (3.5-5.1)
[2021-08-01 03:15] LABS: Basophils % 0.1 %; Hematocrit 36.5 % (35.3-44.9); Hemoglobin 11.2 g/dL (11.5-15.4); Immature Granulocytes % 0.3 % (0-4); Lymphocytes # 0.7 K/mcL (0.6-4.6); Lymphocytes % 4.9 %; Mean Corpuscular HGB Conc 30.7 g/dL (31.6-35.5); Mean Corpuscular Hemoglobin 26.5 pg (28.0-33.3); Mean Corpuscular Volume 86.5 fL (83.0-100.0); Mean Platelet Volume 9.9 fL (9.4-12.4); Monocytes # 1.1 K/mcL (0.0-1.3); Monocytes % 7.5 %; Neutrophils # 12.6 K/mcL (1.6-8.9); Platelet Count 233 K/mcL (140-400); Red Blood Count 4.22 M/mcL (3.82-4.97); Red Cell Distribution Width 14.1 % (11.5-14.5); Segmented Neutrophils % 87.2 %; White Blood Count 14.5 K/mcL (4.3-11.1)
[2021-08-01] MEDS: *HR* Metoprolol 5 MG/5 ML VIAL IVP SCH ×3 (06:24→16:56)
[2021-08-01] MEDS: 0.9 % Sodium Chloride 1,000 ML IVC SCH ×2 (06:25→20:15)
[2021-08-01] MEDS ORDERED: 0.9 % Sodium Chloride 1,000 ML IVC ONE (06:29)
[2021-08-01] MEDS ORDERED: 0.9 % Sodium Chloride Mini Bag 100 ML ONE (08:41)
[2021-08-01] MEDS: Piperacillin/Tazobactam 3.375 GM in 0.9 % Sodium Chloride Mini Bag 100 ML IVPB SCH ×2 (08:50)
[2021-08-01] MEDS: Insulin LISPRO 300 UNITS/3 ML VIAL SUBQ SCH ×2 (12:26→17:46)
[2021-08-01] MEDS: *HR* Heparin 5,000 UNIT/ML VIAL SQ SCH (16:55)
[2021-08-02] MEDS: *HR* Metoprolol 5 MG/5 ML VIAL IVP SCH ×4 (00:11→18:17)
[2021-08-02] MEDS: Insulin LISPRO 300 UNITS/3 ML VIAL SUBQ SCH ×4 (00:11→18:31)
[2021-08-02] MEDS: Acetaminophen IV 1,000 MG/100 ML BAG IVPB SCH ×4 (00:12→18:17)
[2021-08-02 05:16] LABS: Basophils % 0.1 %; Hematocrit 31.4 % (35.3-44.9); Immature Granulocytes % 0.5 % (0-4); Lymphocytes # 1.2 K/mcL (0.6-4.6); Lymphocytes % 8.8 %; Mean Corpuscular HGB Conc 29.6 g/dL (31.6-35.5); Mean Corpuscular Volume 87.7 fL (83.0-100.0); Mean Platelet Volume 10.6 fL (9.4-12.4); Monocytes # 1.1 K/mcL (0.0-1.3); Monocytes % 8.6 %; Neutrophils # 10.8 K/mcL (1.6-8.9); Platelet Count 180 K/mcL (140-400); Red Blood Count 3.58 M/mcL (3.82-4.97); Red Cell Distribution Width 14.5 % (11.5-14.5); White Blood Count 13.1 K/mcL (4.3-11.1)
[2021-08-02 05:21] LABS: Hemoglobin 9.3 g/dL (11.5-15.4)
[2021-08-02 05:30] LABS: Calcium 8.2 mg/dL (8.6-10.3); Phosphorous 2.4 mg/dL (2.7-4.5); Potassium 4.1 mEq/L (3.5-5.1)
[2021-08-02] MEDS: *HR* Heparin 5,000 UNIT/ML VIAL SQ SCH ×2 (06:00→18:17)
[2021-08-02] MEDS: 0.9 % Sodium Chloride 1,000 ML IVC SCH (08:31)
[2021-08-02] MEDS ORDERED: 0.9 % Sodium Chloride 1,000 ML IVC SCH (11:40)
[2021-08-03] MEDS: Acetaminophen IV 1,000 MG/100 ML BAG IVPB SCH ×2 (00:11→06:03)
[2021-08-03] MEDS: *HR* Metoprolol 5 MG/5 ML VIAL IVP SCH ×2 (00:12→06:02)
[2021-08-03] MEDS: Insulin LISPRO 300 UNITS/3 ML VIAL SUBQ SCH ×3 (00:18→17:50)
[2021-08-03] MEDS: *HR* Heparin 5,000 UNIT/ML VIAL SQ SCH ×2 (06:03→17:50)
[2021-08-03 06:31] LABS: Basophils % 0.2 %; Eosinophils # 0.2 K/mcL (0.0-0.6); Eosinophils % 1.4 %; Hematocrit 31.9 % (35.3-44.9); Hemoglobin 9.4 g/dL (11.5-15.4); Immature Granulocytes % 0.4 % (0-4); Lymphocytes # 1.9 K/mcL (0.6-4.6); Lymphocytes % 15.8 %; Mean Corpuscular HGB Conc 29.5 g/dL (31.6-35.5); Mean Corpuscular Volume 88.4 fL (83.0-100.0); Mean Platelet Volume 9.6 fL (9.4-12.4); Monocytes # 0.8 K/mcL (0.0-1.3); Monocytes % 6.6 %; Neutrophils # 9.2 K/mcL (1.6-8.9); Platelet Count 191 K/mcL (140-400); Red Blood Count 3.61 M/mcL (3.82-4.97); Red Cell Distribution Width 14.6 % (11.5-14.5); Segmented Neutrophils % 75.6 %; White Blood Count 12.2 K/mcL (4.3-11.1)
[2021-08-03 06:53] LABS: Calcium 8.2 mg/dL (8.6-10.3); Magnesium 1.9 mg/dL (1.6-2.6); Phosphorous 1.7 mg/dL (2.7-4.5); Potassium 3.9 mEq/L (3.5-5.1)
[2021-08-03] MEDS ORDERED: FLUoxetine 20 MG CAPSULE PO SCH ×2 (11:15→12:00)
[2021-08-03] MEDS ORDERED: Acetaminophen 325 MG TABLET PO PRN (11:39)
[2021-08-03] MEDS ORDERED: *HR* OxyCODONE/APAP 5/325 TABLET PO PRN (11:39)
[2021-08-03] MEDS: FLUoxetine 20 MG CAPSULE PO SCH (20:42)
[2021-08-04] MEDS: *HR* Heparin 5,000 UNIT/ML VIAL SQ SCH (05:21)
[2021-08-04 05:27] LABS: Basophils % 0.3 %; Eosinophils # 0.2 K/mcL (0.0-0.6); Eosinophils % 2.1 %; Hematocrit 31.6 % (35.3-44.9); Immature Granulocytes % 0.9 % (0-4); Lymphocytes # 1.3 K/mcL (0.6-4.6); Lymphocytes % 13.6 %; Mean Corpuscular HGB Conc 31.6 g/dL (31.6-35.5); Mean Corpuscular Hemoglobin 27.3 pg (28.0-33.3); Mean Corpuscular Volume 86.3 fL (83.0-100.0); Mean Platelet Volume 9.9 fL (9.4-12.4); Monocytes # 0.8 K/mcL (0.0-1.3); Platelet Count 229 K/mcL (140-400); Red Blood Count 3.66 M/mcL (3.82-4.97); Red Cell Distribution Width 14.4 % (11.5-14.5); Segmented Neutrophils % 75.1 %; White Blood Count 9.4 K/mcL (4.3-11.1)
[2021-08-04 05:44] LABS: BUN/Creatinine Ratio 13 (6-26); Blood Urea Nitrogen 14 mg/dL (8-23); Calcium 8.2 mg/dL (8.6-10.3); Carbon Dioxide 23 mEq/L (23-29); Chloride 110 mEq/L (98-107); Glucose 196 mg/dL (70-105); Magnesium 1.7 mg/dL (1.6-2.6); Osmolality,Calculated 294 (280-300); Phosphorous 2.4 mg/dL (2.7-4.5); Potassium 3.7 mEq/L (3.5-5.1); Sodium 139 mEq/L (136-145); eGFR For African Americans > 60 (> 60); eGFR For Non-African Americans 50 (> 60)
[2021-08-04] MEDS ORDERED: *HR* Rivaroxaban 10 MG TABLET PO SCH (09:00)
[2021-08-04] MEDS: Furosemide 20 MG TABLET PO SCH ×2 (09:31→21:10)
[2021-08-04] MEDS: Insulin LISPRO 300 UNITS/3 ML VIAL SUBQ SCH ×3 (09:38→17:26)
[2021-08-04] MEDS ORDERED: Insulin DETEMIR 100 UNIT/ML X5UNITS SUBQ SCH (18:00)
[2021-08-04 19:38] VITALS: O2SAT 98
[2021-08-04] MEDS: Psyllium 1 PACKET POWD.PACK PO SCH (21:08)
[2021-08-04] MEDS: FLUoxetine 20 MG CAPSULE PO SCH (21:12)
[2021-08-05 08:08] LABS: BUN/Creatinine Ratio 11 (6-26); Blood Urea Nitrogen 11 mg/dL (8-23); Calcium 8.6 mg/dL (8.6-10.3); Carbon Dioxide 26 mEq/L (23-29); Chloride 109 mEq/L (98-107); Glucose 71 mg/dL (70-105); Magnesium 1.6 mg/dL (1.6-2.6); Osmolality,Calculated 282 (280-300); Phosphorous 2.2 mg/dL (2.7-4.5); Potassium 3.6 mEq/L (3.5-5.1); Sodium 137 mEq/L (136-145); eGFR For African Americans > 60 (> 60); eGFR For Non-African Americans 53 (> 60)
[2021-08-05 08:21] VITALS: BP 143/80; PULSE 58; TEMP 97.4
[2021-08-05] MEDS ORDERED: *HR* Rivaroxaban 15 MG TABLET PO SCH (09:00)
[2021-08-05] MEDS: Psyllium 1 PACKET POWD.PACK PO SCH (09:49)
[2021-08-05] MEDS: Furosemide 20 MG TABLET PO SCH (09:50)
[2021-08-05] MEDS: Insulin LISPRO 300 UNITS/3 ML VIAL SUBQ SCH (09:50)
[2021-08-10] MEDS ORDERED: SEMAGLUTIDE 0.25 MG SQ SCH (15:13)
== END 2021-08-05 13:17 | disposition home health service (06) | DRG 330 ==
LOC: SAMDAY 08:59 → 3ANU 17:03
PROVIDERS: ADMIT Surgery; ATTEND Surgery